=== PATIENT | male | born 1965 | race American Indian/Alaskan Native ===

== ENCOUNTER 2017-03-10 07:07 | Day surgery (SDC) | payer OTHER ==
[~2017-03-10 07:07] MED LIST: Midazolam 1 MG/ML 2 ML SDV ONE; fentaNYL 100 MCG/2 ML SDV ONE
[2017-03-10] MEDS ORDERED: Dextrose 5%-0.45% NaCl 1,000 ML IV SCH (07:30)
[2017-03-10] MEDS ORDERED: fentaNYL 100 MCG/2 ML SDV IV ONE ×3 (08:09→17:01)
[2017-03-10] MEDS ORDERED: Midazolam 1 MG/ML 2 ML SDV IV ONE ×3 (08:10→17:01)
--- NOTE | 2017-03-10 09:22 | OR ---
DATE: 03/10/2017 PROCEDURE: Esophagogastroduodenoscopy and multiple pinch biopsies. INSTRUMENT USED: GIF-H180 Olympus video panendoscope. PREMEDICATIONS: No oral topical anesthesia used. Fentanyl 100 mcg intravenous, Versed 2 mg intravenous. Nasal 2 L O2 cannula. The procedure was done under pulse oximetry, BP recording, and radiation monitor. INDICATION: The patient with recently detected iron deficiency, had gastric bypass surgery in the past. Chronic hepatitis seen. Esophagogastroduodenoscopy is performed for detection of any active erosive lesions, malignancy also under consideration, H. pylori status to be determined, endoscopic hemostasis therapy if needed. DESCRIPTION OF PROCEDURE: The scope was passed with ease. Adequate visualization of the esophagus was made from proximal to distal areas. No upper esophageal lesions identified. No distal esophageal stricture. No uphill or downhill esophageal varices. No Chacha-Roe tear. No evidence of erosive esophagitis by Corinth criteria. No esophageal polyp or tumor mass identified. Z-line was seen at around 40 cm distal to the oral verge, configuration consistent with grade 1 by ZAP classification. No esophageal polyp or tumor mass identified. No proximal gastric varices noted. Gastric fundus examination by retroflexion showed no polypoid lesions. Visualized afferent and efferent loops of the small bowel were negative for any bleeding areas. No gastric ulcer, malignant mass, or vascular ectasia identified. Multiple pinch biopsies were taken from the distal and proximal gastric mucosa and sent for PyloriTek test for H. pylori and if negative in an hour, tissue is to be sent for histopathology. No bleeding was noted from any of the visualized areas at the completion of examination. Photographs were taken of the surgical site, gastric fundus, as well as distal esophagus. IMPRESSION: Status post gastric bypass surgery. The patient tolerated the procedure well. [facility] /[id number]
[2017-03-10 10:45] VITALS: BP 121/79
== END 2017-03-10 10:30 | disposition home or self-care (01) ==
LOC: DL.ENDO 07:07
PROVIDERS: ATTEND Internal Medicine Gastroenterology
DX: K29.30 Chronic superficial gastritis without bleeding (principal); R05 Cough; E66.9 Obesity, unspecified; I10 Essential (primary) hypertension; D50.9 Iron deficiency anemia, unspecified; F17.210 Nicotine dependence, cigarettes, uncomplicated; Z98.84 Bariatric surgery status
CPT/HCPCS: 43239; 87077; J2250; J3010; J7042

== ENCOUNTER 2017-03-12 06:38 | Day surgery (SDC) | payer OTHER ==
[~2017-03-12 06:38] MED LIST changes: +Dextrose 5%-0.45% NaCl 1,000 ML IV SCH; +Sodium Chloride 0.9% 10 ML Syringe FLUSH PRN
[2017-03-12] MEDS ORDERED: fentaNYL 100 MCG/2 ML SDV IV ONE ×3 (07:24→16:22)
[2017-03-12] MEDS ORDERED: Midazolam 1 MG/ML 2 ML SDV IV ONE ×5 (07:25→16:22)
--- NOTE | 2017-03-12 08:26 | OR ---
DATE: 03/12/2017 PROCEDURE: Total colonoscopy and multiple cold snare polypectomies. INSTRUMENT USED: CF-H180AL Olympus video colonoscope. PREMEDICATIONS: Fentanyl 100 mcg intravenous, Versed 2.5 mg intravenous. Nasal O2 cannula. The procedure was done under pulse oximetry, BP recording, and cardiac care nurse. INDICATION: The patient with iron deficiency. Colonoscopic examination is done for detection of any polypoid lesions and removal, endoscopic hemostasis therapy if needed. DESCRIPTION OF PROCEDURE: Initial rectal exam was unremarkable. Rigid anoscopy was normal. The colonoscope was passed with ease. In the distal and proximal sigmoid colon, benign-appearing diminutive polyps were noted, photographs were taken, cold snare polypectomies were done, the tissues were retrieved and sent for histopathology. The scope was passed with ease up to the ileocecal area, colon was found to be and redundant, photographs were taken of the normal- appearing cecum, identified by landmarks of appendiceal orifice and double- bulged ileocecal folds. No bleeding was noted from any of the visualized areas at the commencement of the examination. No stricture. No vascular ectasia. No large isolated ulcerations seen. No evidence of diffuse inflammatory bowel disease in the form of friability, contact bleeding, or ulcerations. Probing the proximal sides of folds and flexures using adequate distention and clearing of the stool material, withdrawal of the scope was made, cecum to rectum time over 6 minutes. No bleeding was noted from any of the visualized areas at the completion of examination. IMPRESSION: Multiple colonic polyps. The patient tolerated the procedure well. [facility] /[id number]
[2017-03-12 09:44] VITALS: BP 123/73
== END 2017-03-12 09:55 | disposition home or self-care (01) ==
LOC: DL.ENDO 06:38
PROVIDERS: ATTEND Internal Medicine Gastroenterology
DX: D12.5 Benign neoplasm of sigmoid colon (principal); D50.9 Iron deficiency anemia, unspecified; I10 Essential (primary) hypertension; E66.09 Other obesity due to excess calories; F17.210 Nicotine dependence, cigarettes, uncomplicated; N40.0 Benign prostatic hyperplasia without lower urinary tract symptoms; F32.9 Major depressive disorder, single episode, unspecified; Z86.73 Personal history of transient ischemic attack (TIA), and cerebral infarction without residual deficits; Z98.84 Bariatric surgery status; Z98.890 Other specified postprocedural states; Z79.899 Other long term (current) drug therapy
CPT/HCPCS: 45385; J2250; J3010; J7042

== ENCOUNTER 2017-08-16 09:51 | Emergency (ER) | payer MEDICARE, OTHER ==
[2017-08-16 10:23] VITALS: BP 145/102
--- NOTE | 2017-08-16 10:44 | EDM.PDOC ---
ED HPI GENERAL MEDICAL PROBLEM - General Chief Complaint: Genitourinary Problem Stated Complaint: [id number] UNIRARY TRACT Time Seen by Provider: 08/16/17 10:40 Source of Information: Reports: Patient History Limitations: Reports: No Limitations - History of Present Illness INITIAL COMMENTS - FREE TEXT/NARRATIVE: 52 yo [place] male c/o burning and difficulty w/ urination for 5 months. Pt. w/ / PMHx. HTN and Alcoholism. Pt. presently in treatment and will be released on Friday. Pt. has seen Urology twice but do to elevated BP he could not have the cystoscopy. Pt. states he can only urinate if he squeezes the head of his penis Onset Date: 08/09/17 Onset Time: 12:00 Duration: Week(s): Location: Reports: Pelvis Quality: Reports: Burning (with urination) Severity: Moderate Improves with: Reports: None Worsens with: Reports: None Associated Symptoms: Reports: No Other Symptoms Penis Pain Score (Numeric/FACES): 10 - Related Data Allergies Allergy/AdvReac Type Severity Reaction Status Date / Time No Known Allergies Allergy Verified 03/10/17 07:49 Home Meds: Home Meds Hydrochlorothiazide 1 tab PO DAILY 03/07/17 [History] Sertraline [Zoloft] 1 tab PO DAILY 03/07/17 [History] Nitrofurantoin Macrocrystal [Macrodantin] 1 tab PO BID 03/12/17 [History] Past Medical History HEENT History: Reports: Impaired Vision Cardiovascular History: Reports: Blood Clots/VTE/DVT, Hypertension, [place] Respiratory History: Reports: Asthma Gastrointestinal History: Reports: Hepatitis Genitourinary History: Reports: UTI, Recurrent Musculoskeletal History: Reports: Arthritis, Back Pain, Chronic, Other (See Below) Other Musculoskeletal History: broke 10th vertebrae Neurological History: Reports: CVA Psychiatric History: Reports: Addiction Endocrine/Metabolic History: Reports: None Hematologic History: Reports: Iron Deficiency Immunologic History: Reports: None Oncologic (Cancer) History: Reports: None Dermatologic History: Reports: None - Infectious Disease History Infectious Disease History: Reports: Hepatitis C - Past Surgical History Head Surgeries/Procedures: Reports: None Cardiovascular Surgical History: Reports: Other (See Below) Respiratory Surgical History: Reports: None GI Surgical History: Reports: Bariatric Procedure, EGD, Hernia, Abdominal Social & Family History - Family History Family Medical History: Noncontributory - Tobacco Use Smoking Status *Q: Current Every Day Smoker Years of Tobacco use: 2 Packs/Tins Daily: 0.5 Used Tobacco, but Quit: Yes Month Tobacco Last Used: MARCH 2017 Second Hand Smoke Exposure: No - Caffeine Use Caffeine Use: Reports: Coffee, Soda, Tea - Recreational Drug Use Recreational Drug Use: Yes Recreational Drug Type: Reports: Marijuana/Hashish Other Recreational Drug Type: pT STATES HAS" USED JUST ABOUT EVERYTHING" ED ROS GENERAL - Review of Systems Review Of Systems: See Below Constitutional: Reports: No Symptoms HEENT: Reports: No Symptoms Respiratory: Reports: No Symptoms Cardiovascular: Reports: No Symptoms Endocrine: Reports: No Symptoms GI/Abdominal: Reports: No Symptoms : Reports: Dysuria, Urinary Retention Musculoskeletal: Reports: No Symptoms Skin: Reports: No Symptoms Neurological: Reports: No Symptoms Psychiatric: Reports: No Symptoms Hematologic/Lymphatic: Reports: No Symptoms Immunologic: Reports: No Symptoms ED EXAM, RENAL/ - Physical Exam Exam: See Below Exam Limited By: No Limitations General Appearance: Alert, No Apparent Distress, Anxious, Obese Eye Exam: Bilateral Eye: PERRL Ears: Normal External Exam Nose: Normal Inspection Throat/Mouth: Normal Inspection Head: Atraumatic Neck: Normal Inspection Respiratory/Chest: No Respiratory Distress Cardiovascular: Normal Peripheral Pulses, Regular Rate, Rhythm GI/Abdominal: Normal Bowel Sounds, Soft (Male) Exam: No Hernia, Normal Inspection Back Exam: Normal Inspection Extremities: Normal Inspection, Normal Range of Motion Neurological: Alert, Oriented, CN II-XII Intact Psychiatric: Normal Affect, Anxious Skin Exam: Warm Lymphatic: No Adenopathy ED PROCEDURES - Additional/Other Procedure(s) Procedure(s) (Free Text): chavez catheter placed and no complications, 400cc of cloudy urine returned Course - Vital Signs Last Recorded V/S: Last Vital Signs Temp 35.7 C 08/16/17 10:22 Pulse 113 H 08/16/17 10:22 Resp 20 08/16/17 10:22 BP 145/102 H 08/16/17 10:22 Pulse Ox 98 08/16/17 10:22 - Orders/Labs/Meds Orders: Active Orders 24 hr Category Date Time Status Chavez Catheter Insertion [Insert Urinary Catheter] [OM. Care 08/16/17 11:15 Ordered PC] Q24H Urinary Catheter Assessment [RC] ASDIRECTED Care 08/16/17 11:06 Active CULTURE URINE [RM] Stat Lab 08/16/17 12:12 Uncollected Labs: Laboratory Tests 08/16/17 Range/Units 11:34 Urine Color [place] (YELLOW) Urine Appearance Cloudy (CLEAR) Urine pH 5.5 (5.0-9.0) Ur Specific [place] >= 1.030 (1.005-1.030) Urine Protein 30 H (NEGATIVE) Urine Glucose (UA) Negative (NEGATIVE) Urine Ketones 15 H (NEGATIVE) Urine Occult Blood Small H (NEGATIVE) Urine Nitrite Negative (NEGATIVE) Urine Bilirubin Small H (NEGATIVE) Urine Urobilinogen 1.0 (0.2-1.0) mg/dL Ur Leukocyte Esterase Negative (NEGATIVE) Urine RBC 20-30 H /HPF Urine WBC 5-10 H (0-5/HPF) /HPF Ur Epithelial Cells Moderate H /HPF Urine Bacteria Moderate H (0-FEW/HPF) /HPF Hyaline Casts Few H /LPF Urine Mucus Moderate H /LPF Meds: Medications Discontinued Medications Generic Name Dose Route Start Last Admin Trade Name Freq PRN Reason Stop Dose Admin Ceftriaxone Sodium 1 gm 08/16/17 12:12 Rocephin IM 08/16/17 12:13 ONETIME ONE Lidocaine HCl 10 ml 08/16/17 11:06 08/16/17 11:10 Xylocaine 2% Jelly MUCMEM 08/16/17 11:07 10 ml ONETIME ONE Administration Departure - Departure Time of Disposition: 12:26 Disposition: Home, Self-Care 01 Condition: Good Clinical Impression: UTI, Urinary tract infectious disease, Acute urinary retention Urethral stricture Qualifiers: Urethral stricture type: unspecified stricture type Qualified Code(s): N35.9 - Urethral stricture, unspecified - Discharge Information Forms: ED Department Discharge Additional Instructions: Keep Leg Bag/Chavez in place Increase intake of Water / Cranberry Juice F/U w/ UROLOGY - CALL FridayAugust 18, for appt. Take the oral antibiotic as prescribed and complete: CIPRO 500mg BID # 20 - My Orders Last 24 Hours: My Active Orders 08/16/17 11:06 Urinary Catheter Assessment [RC] ASDIRECTED 08/16/17 11:15 Chavez Catheter Insertion [Insert Urinary Catheter] [OM.PC] Q24H 08/16/17 12:12 CULTURE URINE [RM] Stat - Assessment/Plan Last 24 Hours: My Active Orders 08/16/17 11:06 Urinary Catheter Assessment [RC] ASDIRECTED 08/16/17 11:15 Chavez Catheter Insertion [Insert Urinary Catheter] [OM.PC] Q24H 08/16/17 12:12 CULTURE URINE [RM] Stat
[2017-08-16] MEDS ORDERED: Lidocaine 2% Jelly 10 ML Urojet MUCMEM ONE (11:06)
[2017-08-16] MEDS ORDERED: cefTRIAXone 1 GM Vial IM ONE (12:12)
== END 2017-08-16 12:43 | disposition home or self-care (01) ==
LOC: DL.ED 09:51
DX: N39.0 Urinary tract infection, site not specified (principal); N35.9 Urethral stricture, unspecified; F17.210 Nicotine dependence, cigarettes, uncomplicated; Z79.899 Other long term (current) drug therapy
CPT/HCPCS: 51702; 81001; 96372; 99283; J0696

== ENCOUNTER 2017-08-25 22:40 | Emergency (ER) | payer MEDICARE, OTHER ==
[2017-08-25 23:18] VITALS: BP 145/96
--- NOTE | 2017-08-26 00:59 | EDM.PDOC ---
ED HPI GENERAL MEDICAL PROBLEM - General Chief Complaint: Genitourinary Problem Stated Complaint: TAKE OUT CATHETER [id number] Time Seen by Provider: 08/26/17 00:45 Source of Information: Reports: Patient History Limitations: Reports: No Limitations - History of Present Illness INITIAL COMMENTS - FREE TEXT/NARRATIVE: patient comes emergency Department today with request for removal of a Chavez catheter. The patient has had a Chavez catheter placed for the past 3 weeks due to a urinary tract infection that led to urinary retention. His have a follow- up with urology in 36 hours for further evaluation of urinary retention. The patient has had multiple episodes of urinary retention with urinary tract infections in the past. He has had multiple catheters placed due to some scar tissue that has happened in his urethra following some surgeries as well as a self removal of the Chavez catheter without deflating the balloon causing some damage in the urethra as well. he denies any fever or chills. He denies any nausea vomiting. He denies any flank pain. He relates that her urine is yellow. No abdominal pain. He does have some tenderness to the end of his penis which is primarily of the reason that he wants his catheter removed. He has had no discharge from his penis. There are no lesions or sores on his penis. Penis Pain Score (Numeric/FACES): 9 - Related Data Allergies Allergy/AdvReac Type Severity Reaction Status Date / Time No Known Allergies Allergy Verified 08/25/17 23:02 Home Meds: Home Meds Hydrochlorothiazide 1 tab PO DAILY 03/07/17 [History] Sertraline [Zoloft] 1 tab PO DAILY 03/07/17 [History] Albuterol [Ventolin HFA] 2 puff INH Q8H PRN 08/25/17 [History] Past Medical History HEENT History: Reports: Impaired Vision Cardiovascular History: Reports: Blood Clots/VTE/DVT, Hypertension, [place] Respiratory History: Reports: Asthma Gastrointestinal History: Reports: Hepatitis Genitourinary History: Reports: UTI, Recurrent Musculoskeletal History: Reports: Arthritis, Back Pain, Chronic, Other (See Below) Other Musculoskeletal History: broke 10th vertebrae Neurological History: Reports: CVA Psychiatric History: Reports: Addiction Endocrine/Metabolic History: Reports: None Hematologic History: Reports: Iron Deficiency Immunologic History: Reports: None Oncologic (Cancer) History: Reports: None Dermatologic History: Reports: None - Infectious Disease History Infectious Disease History: Reports: Hepatitis C - Past Surgical History Head Surgeries/Procedures: Reports: None Respiratory Surgical History: Reports: None GI Surgical History: Reports: Bariatric Procedure, EGD, Hernia, Abdominal Male Surgical History: Reports: Other (See Below) Other Male Surgeries/Procedures: in-dwelling catheter Social & Family History - Family History Family Medical History: Noncontributory - Tobacco Use Smoking Status *Q: Current Every Day Smoker Years of Tobacco use: 5 Packs/Tins Daily: 0.5 Used Tobacco, but Quit: Yes Month Tobacco Last Used: MARCH 2017 Second Hand Smoke Exposure: Yes - Caffeine Use Caffeine Use: Reports: Coffee, Soda - Recreational Drug Use Recreational Drug Use: No Recreational Drug Type: Reports: Marijuana/Hashish Other Recreational Drug Type: pT STATES HAS" USED JUST ABOUT EVERYTHING" ED ROS GENERAL - Review of Systems Review Of Systems: ROS reveals no pertinent complaints other than HPI. ED EXAM, RENAL/ - Physical Exam Exam: See Below Exam Limited By: No Limitations General Appearance: Alert, WD/WN, No Apparent Distress GI/Abdominal: Normal Bowel Sounds, Soft, Non-Tender, No Distention (Male) Exam: Other (Chavez catheter in place draining clear urine.). No: Penile Lesions, Rash, Scrotal Swelling, Scrotum Tenderness (L), Scrotum Tenderness (R), Suprapubic Fullness, Testicular Mass, Testicular Tenderness (L) , Testicular Tenderness (R), Urethral Discharge Rectal (Males) Exam: Deferred Back Exam: Normal Inspection, Full Range of Motion. No: CVA Tenderness (L), CVA Tenderness (R) Neurological: Alert, Oriented Psychiatric: Normal Affect Skin Exam: Warm, Dry, Intact, Normal Color Course - Vital Signs Last Recorded V/S: Last Vital Signs Temp 35.9 C 08/25/17 23:10 Pulse 89 08/25/17 23:10 Resp 18 08/25/17 23:10 BP 145/96 H 08/25/17 23:10 Pulse Ox 96 08/25/17 23:10 - Re-Assessments/Exams Free Text/Narrative Re-Assessment/Exam: 08/26/17 00:56 I did explain to the patient that if his PCP wants the catheter to stay in place until follow up with Urology that would be my recommendation. Although since the patient has pulled it out on his own in the past and caused damage and he is demanding to have it removed to prevent further problems by self removal we will remove tonight with the understanding of the complications or problems that may arise with the removal to include urinary retention or recurrent infection. He is understanding of this and still would like the catheter removed. Departure - Departure Time of Disposition: 00:53 Disposition: Home, Self-Care 01 Clinical Impression: Chavez catheter problem Qualifiers: Encounter type: initial encounter Qualified Code(s): T83.9XXA - Unspecified complication of genitourinary prosthetic device, implant and graft, initial encounter - Discharge Information Instructions: Acute Urinary Retention, Male Additional Instructions: We will pull the catheter on your request with the understanding that you may have problems before you get to Urology. Follow up with Urology as planned on Friday. Return to the ED if new or worsening symptoms. - Assessment/Plan Assessment:: Request chavez catheter be removed. Penis pain from catheter. Plan: We will pull the catheter on your request with the understanding that you may have problems before you get to Urology. Follow up with Urology as planned on Friday. Return to the ED if new or worsening symptoms.
== END 2017-08-26 01:04 | disposition home or self-care (01) ==
LOC: DL.ED 22:40
DX: T83.9XXA Unspecified complication of genitourinary prosthetic device, implant and graft, initial encounter (principal); N48.89 Other specified disorders of penis; F17.210 Nicotine dependence, cigarettes, uncomplicated; Z79.899 Other long term (current) drug therapy
CPT/HCPCS: 99283

== ENCOUNTER 2017-09-17 20:20 | Emergency (ER) | payer MEDICARE, OTHER ==
--- NOTE | 2017-09-17 20:38 | EDM.PDOC ---
ED HPI GENERAL MEDICAL PROBLEM - General Chief Complaint: Genitourinary Problem Stated Complaint: CATHETER REMOVAL, [id number] Time Seen by Provider: 09/17/17 20:31 Source of Information: Reports: Patient History Limitations: Reports: No Limitations - History of Present Illness INITIAL COMMENTS - FREE TEXT/NARRATIVE: had chavez placed last week for urinary problems. missed appt for f/u but had it rescheduled for . states called Uro and nurse told him to go to Er for cath removal if it is irritating him. discussed with pt re; problems with excessive insertion-removal. Penis Pain Score (Numeric/FACES): 6 - Related Data Allergies Allergy/AdvReac Type Severity Reaction Status Date / Time No Known Allergies Allergy Verified 09/17/17 20:39 Home Meds: Home Meds Hydrochlorothiazide 1 tab PO DAILY 03/07/17 [History] Sertraline [Zoloft] 1 tab PO DAILY 03/07/17 [History] Albuterol [Ventolin HFA] 2 puff INH Q8H PRN 08/25/17 [History] Past Medical History HEENT History: Reports: Impaired Vision Cardiovascular History: Reports: Blood Clots/VTE/DVT, Hypertension, [place] Respiratory History: Reports: Asthma Gastrointestinal History: Reports: Hepatitis Genitourinary History: Reports: UTI, Recurrent Musculoskeletal History: Reports: Arthritis, Back Pain, Chronic, Other (See Below) Other Musculoskeletal History: broke 10th vertebrae Neurological History: Reports: CVA Psychiatric History: Reports: Addiction Endocrine/Metabolic History: Reports: None Hematologic History: Reports: Iron Deficiency Immunologic History: Reports: None Oncologic (Cancer) History: Reports: None Dermatologic History: Reports: None - Infectious Disease History Infectious Disease History: Reports: Hepatitis C - Past Surgical History Head Surgeries/Procedures: Reports: None Respiratory Surgical History: Reports: None GI Surgical History: Reports: Bariatric Procedure, EGD, Hernia, Abdominal Male Surgical History: Reports: Other (See Below) Other Male Surgeries/Procedures: in-dwelling catheter Social & Family History - Family History Family Medical History: Noncontributory - Tobacco Use Smoking Status *Q: Current Every Day Smoker Years of Tobacco use: 5 Packs/Tins Daily: 0.5 Used Tobacco, but Quit: Yes Month Tobacco Last Used: MARCH 2017 Second Hand Smoke Exposure: Yes - Caffeine Use Caffeine Use: Reports: Coffee, Soda - Recreational Drug Use Recreational Drug Use: No Recreational Drug Type: Reports: Marijuana/Hashish Other Recreational Drug Type: pT STATES HAS" USED JUST ABOUT EVERYTHING" ED ROS GENERAL - Review of Systems Review Of Systems: ROS reveals no pertinent complaints other than HPI. ED EXAM, RENAL/ - Physical Exam Exam: See Below Exam Limited By: No Limitations General Appearance: Alert, WD/WN, No Apparent Distress Ears: Hearing Grossly Normal Throat/Mouth: Normal Voice, No Airway Compromise Head: Atraumatic Neck: Non-Tender, Full Range of Motion Respiratory/Chest: No Respiratory Distress Cardiovascular: Regular Rate, Rhythm GI/Abdominal: Soft, Other (suprapubic discomfort) Neurological: Alert, Oriented, Normal Cognition, Normal Gait, No Motor/Sensory Deficits Psychiatric: Flat Affect Skin Exam: Warm, Dry, Normal Color Lymphatic: No Adenopathy Course - Vital Signs Last Recorded V/S: Last Vital Signs Temp 36.3 C 09/17/17 20:25 Pulse 119 H 09/17/17 20:25 Resp 18 09/17/17 20:25 BP 123/96 H 09/17/17 20:25 Pulse Ox 98 09/17/17 20:25 - Orders/Labs/Meds Labs: Laboratory Tests 09/17/17 Range/Units 20:47 Urine Color Yellow (YELLOW) Urine Appearance Turbid (CLEAR) Urine pH 5.5 (5.0-9.0) Ur Specific [place] >= 1.030 (1.005-1.030) Urine Protein 30 H (NEGATIVE) Urine Glucose (UA) Negative (NEGATIVE) Urine Ketones Trace H (NEGATIVE) Urine Occult Blood Moderate H (NEGATIVE) Urine Nitrite Positive H (NEGATIVE) Urine Bilirubin Negative (NEGATIVE) Urine Urobilinogen 1.0 (0.2-1.0) mg/dL Ur Leukocyte Esterase Small H (NEGATIVE) Urine RBC 50-75 H /HPF Urine WBC 50-75 H (0-5/HPF) /HPF Ur Epithelial Cells Moderate H /HPF Amorphous Sediment Rare (0/HPF) /HPF Urine Bacteria Many H (0-FEW/HPF) /HPF Urine Mucus Few H /LPF Meds: Medications Discontinued Medications Generic Name Dose Route Start Last Admin Trade Name Freq PRN Reason Stop Dose Admin Ciprofloxacin 500 mg 09/17/17 21:14 Ciprofloxacin Hcl PO 09/17/17 21:15 ONETIME ONE Phenazopyridine HCl 95 mg 09/17/17 21:14 Urinary Pain Relief PO 09/17/17 21:15 ONETIME ONE Departure - Departure Time of Disposition: 21:15 Disposition: Home, Self-Care 01 Condition: Good Clinical Impression: Urinary tract infection Qualifiers: Urinary tract infection type: acute cystitis Hematuria presence: with hematuria Qualified Code(s): N30.01 - Acute cystitis with hematuria - Discharge Information Instructions: Urinary Tract Infection, Adult, [id number] Forms: ED Department Discharge Additional Instructions: 1) drink lots of liquids 2) call Urologist tomorrow to see if he can see you earlier rx given; cipro 250mg bid x 5 days pyridium 100mg tid prn x 12
[2017-09-17 20:40] VITALS: BP 123/96
[2017-09-17] MEDS ORDERED: Ciprofloxacin 500 MG Tab PO ONE (21:14)
[2017-09-17] MEDS ORDERED: Phenazopyridine 95 MG Tab PO ONE (21:14)
== END 2017-09-17 21:23 | disposition home or self-care (01) ==
LOC: DL.ED 20:20
DX: N30.01 Acute cystitis with hematuria (principal); F17.210 Nicotine dependence, cigarettes, uncomplicated; I10 Essential (primary) hypertension; J45.909 Unspecified asthma, uncomplicated
CPT/HCPCS: 81001; 99283; A9270